=== PATIENT | male | born 1995 | race Caucasian/White ===

== ENCOUNTER → 2025-10-18 | Emergency (ER) | payer SELFPAY ==
[~2025-10-18] VITALS: Ht 167.6 cm; Wt 73.2 kg
[2025-10-18 19:43] VITALS: BP 141/102; TEMP 36.8; O2SAT 100
[2025-10-18 19:47] VITALS: PULSE 96; RESP 18; O2SAT 100
== END ==
LOC: ER 19:37
DX: S69.80XA Other specified injuries of unspecified wrist, hand and finger(s), initial encounter (principal); Z53.21 Procedure and treatment not carried out due to patient leaving prior to being seen by health care provider; X58.XXXA Exposure to other specified factors, initial encounter; Y93.89 Activity, other specified; Y92.89 Other specified places as the place of occurrence of the external cause; Y99.8 Other external cause status
CPT/HCPCS: 99281